=== PATIENT | female | born 1960 | race Caucasian/White ===

== ENCOUNTER 2016-06-04 05:53 | Day surgery (SDC) | payer BC, OTHER ==
[2016-05-31 16:45] VITALS: BMI 20.6
[2016-06-04 06:12] VITALS: TEMP 97.5
[2016-06-04] MEDS ORDERED: PROPOFOL 20 ML ONE (07:22)
[2016-06-04] MEDS ORDERED: MIDAZOLAM HCL 2 MG/2 ML SINGLE DOSE VIAL ONE (07:23)
[2016-06-04] MEDS ORDERED: SUCCINYLCHOLINE CHLORIDE 200 MG/10 ML VIAL ONE (07:23)
[2016-06-04] MEDS ORDERED: LIDOCAINE HCL/PF 2% SDV 5ML VIAL ONE (07:26)
[2016-06-04] MEDS ORDERED: LIDOCAINE HCL 2% (20ML MULTI-DOSE VIAL) NR ONE (07:27)
[2016-06-04] MEDS ORDERED: ceFAZolin SODIUM 1 GM VIAL ONE (07:48)
[2016-06-04 08:48] VITALS: PULSE 66
[2016-06-04] MEDS ORDERED: LIDOCAINE HCL 2% (50ML VIAL) INF ONE (09:17)
[2016-06-04 09:27] VITALS: BP 112/68
--- NOTE | 2016-06-06 21:50 | OP ---
DATE OF OPERATION: 06/04/2016 SURGEON: Chad Bright MD OCULARIST: KANG Canales PREOPERATIVE DIAGNOSIS: Right thumb trigger finger/tenosynovitis. POSTOPERATIVE DIAGNOSIS: Right thumb trigger finger/tenosynovitis. PROCEDURE: Release of right thumb trigger finger/tenosynovitis. FINDINGS: Thickened A1 milton with impingement upon flexor tendon and with fraying of the tendon. DESCRIPTION OF PROCEDURE: Informed consent was obtained. The patient was taken to the operating room where the right upper extremity was prepped and draped in the sterile fashion. Local anesthesia was done at the MCP crease in the A1 milton. Tourniquet was inflated to 250 mmHg. Horizontal incision was made across the MCP joint. The A1 milton was identified and careful attention was made to avoid neurovascular structures. The milton was incised and released proximally and distally, exposing the flexor tendon. Wound was irrigated with copious amounts of irrigation. Curved hemostat was placed around the tendon and minor fraying was debrided. Wound was irrigated again and closed with 4-0 nylon single interrupted sutures. CHAD BRIGHT M.D. [id number]
== END 2016-06-04 09:30 | disposition home or self-care (01) ==
LOC: FASU 05:53
PROVIDERS: ATTEND Orthopaedic Surgery
PROC: 0LN70ZZ Release Right Hand Tendon, Open Approach (ICD-10-PCS; principal; 2016-06-04 07:30)
DX: M65.311 Trigger thumb, right thumb (principal)